=== PATIENT | male | born 1950 | race Caucasian/White ===

== ENCOUNTER → 2017-03-08 | Outpatient (CLI) | payer MEDICARE, OTHER ==
--- NOTE | 2017-03-08 16:00 | Diagnostic Imaging Report ---
INDICATION: Cough, asthma, and fever. COMPARISON: 12/25/2011. FINDINGS: Sternal wires midline. Pacemaker device placed and the battery overlies the left chest. There is no pneumothorax, no effusion. No focal infiltrate. Heart size and vascularity are within normal limits. IMPRESSION: No acute finding post pacemaker placement. Dictated by: Dictated on workstation # [id number]
== END ==
LOC: RAD 10:28
PROVIDERS: ATTEND Family Medicine
DX: R05 Cough (principal); J45.21 Mild intermittent asthma with (acute) exacerbation; Z95.0 Presence of cardiac pacemaker
CPT/HCPCS: 71020